=== PATIENT | female | born 1965 | race Caucasian/White ===

== ENCOUNTER 2018-05-15 06:42 | Emergency (ER) | payer BC, OTHER ==
[2018-05-15 07:21] VITALS: BP 158/90; PULSE 87; TEMP 98.2; BMI 27.4
--- NOTE | 2018-05-15 07:48 | PDOC ---
History of Present Illness - General Chief Complaint: Eye Problem Stated Complaint: LEFT EYE PROBLEM Time Seen by Provider: 05/15/18 07:39 History Source: Patient Exam Limitations: No Limitations - History of Present Illness Initial Comments: 05/15/18 07:43 53-year-old female presents to ED with redness to the left eye upon awakening. Patient states no discomfort visual changes or itching/strain. The patient has no other complaints at this time. Patient denies any injury to the eye or excessive coughing but states lifts heavy items at work daily Timing/Duration: 1-3 hours Severity: mild Associated Symptoms: reports: denies symptoms Past History - Travel Traveled outside of the country in the last 30 days: No - Past Medical History Allergies/Adverse Reactions: Allergies Allergy/AdvReac Type Severity Reaction Status Date / Time Penicillins Allergy Verified 01/11/16 16:01 Home Medications: Ambulatory Orders Aspirin [ASA -] 325 mg PO DAILY 01/11/16 Clindamycin [Cleocin -] 300 mg PO TID #21 capsule 01/11/16 COPD: No Dialysis: No Hypercholesterolemia: No - Immunization History Immunization Up to Date: No - Suicide/Smoking/Psychosocial Hx Smoking History: Unknown if ever smoked Have you smoked in the past 12 months: No Number of Cigarettes Smoked Daily: 20 Information on smoking cessation initiated: No 'Breaking Loose' booklet given: 01/11/16 Hx Alcohol Use: No Drug/Substance Use Hx: No Substance Use Type: None Patient Lives Alone: No Lives with/in: spouse/SO Review of Systems - Review of Systems Able to Perform ROS?: Yes Constitutional: No: Symptoms Reported HEENTM: Yes: Other (red left eye). No: Eye Pain, Blurred Vision, Recent change in vision Respiratory: No: Symptoms reported Cardiac (ROS): No: Lightheadedness ABD/GI: No: Nausea Integumentary: No: Symptoms Reported Neurological: No: Symptoms reported Hematologic/Lymphatic: No: Symptoms Reported *Physical Exam - Vital Signs Last Vital Signs Temp Pulse Resp BP Pulse Ox 98.2 F 87 16 158/90 100 05/15/18 07:17 05/15/18 07:17 05/15/18 07:17 05/15/18 07:17 05/15/18 07:17 - Physical Exam General Appearance: Yes: Nourished, Appropriately Dressed. No: Apparent Distress HEENT: positive: EOMI, KOKI (noted lateral subconjunctival hemorrhage to left eye) Neck: positive: Supple Extremity: positive: Normal Inspection Integumentary: positive: Normal Color, Warm, Moist Neurologic: positive: Motor Strength 5/5 (ambulatory) Moderate Sedation - Procedure Monitoring Vital Signs: Procedure Monitoring Vital Signs Temperature 98.2 F 05/15/18 07:17 Pulse Rate 87 05/15/18 07:17 Respiratory Rate 16 05/15/18 07:17 Blood Pressure 158/90 05/15/18 07:17 O2 Sat by Pulse Oximetry (%) 100 05/15/18 07:17 Medical Decision Making - Medical Decision Making 05/15/18 07:49 Chief complaint: Left eye redness since awakening this morning. No discomfort Exam: Patient with lateral subconjunctival hemorrhage of the left eye Plan: Supportive care instructions including artificial eyedrops which she may purchase over-the counter *DC/Admit/Observation/Transfer Diagnosis at time of Disposition: Subconjunctival hemorrhage of left eye - Discharge Dispostion Disposition: HOME Condition at time of disposition: Good - Referrals - Patient Instructions Printed Discharge Instructions: DI for Subconjunctival Hemorrhage Additional Instructions: Please avoid rubbing the eye. May purchase [id number] artificial eyedrops if the eye starts to feel "irritated" Otherwise read over in close information on your diagnosis - Post Discharge Activity
== END 2018-05-15 08:00 | disposition home or self-care (01) ==
LOC: JER 06:42
DX: H11.32 Conjunctival hemorrhage, left eye (principal)
CPT/HCPCS: 99281-25

== ENCOUNTER 2018-07-03 02:26 | Emergency (ER) | payer OTHER ==
[2018-07-03 03:03] VITALS: BP 149/88; PULSE 93; TEMP 97.7; BMI 31.6
--- NOTE | 2018-07-03 03:15 | PDOC ---
History of Present Illness - General Stated Complaint: NOSE BLEED,HYPERTENSION Time Seen by Provider: 07/03/18 03:11 History Source: Patient Exam Limitations: No Limitations - History of Present Illness Initial Comments: 07/03/18 03:11 53 year old female with PMH HTN (diagnosed x3 weeks ago, no meds) presented to ED for nose bleed since 0140 today. Pt stated she woke up feeling something in her throat, and saw her nose was bleeding. Pt denied other complaints. Pt stated she takes multiple ASA (2-3 pills) a day, because her "friend told me it would prevent heart attacks". Allergies: PCN Past History - Past Medical History Allergies/Adverse Reactions: Allergies Allergy/AdvReac Type Severity Reaction Status Date / Time Penicillins Allergy Verified 07/03/18 03:03 Home Medications: Ambulatory Orders Aspirin [ASA -] 325 mg PO DAILY 01/11/16 COPD: No Dialysis: No Hypercholesterolemia: No - Immunization History Immunization Up to Date: No - Suicide/Smoking/Psychosocial Hx Smoking History: Never smoked Have you smoked in the past 12 months: No Number of Cigarettes Smoked Daily: 20 Information on smoking cessation initiated: No 'Breaking Loose' booklet given: 01/11/16 Hx Alcohol Use: Yes (Social) Drug/Substance Use Hx: No Substance Use Type: None Review of Systems - Review of Systems Able to Perform ROS?: Yes Comments:: 07/03/18 03:12 General: denied fever, chills, generalized weakness. HEENT: admitted to epistaxis. denied sore throat, rhinorrhea, ear pain. Heart: denied chest pain, palpitations, syncope, diaphoresis. Respiratory: denied shortness of breath, cough, sputum production, hemoptysis. Abdomen: denied abdominal pain, nausea, vomiting, diarrhea, constipation, blood in stool. : denied dysuria, increased urinary frequency, hematuria, urinary incontinence , flank pain. Back: denied back pain. Musculoskeletal: denied joint pain, muscle pain, joint swelling. Neurological: denied headache, dizziness, numbness, tingling, weakness. Skin: denied rash, laceration, abrasion. *Physical Exam - Vital Signs Last Vital Signs Temp Pulse Resp BP Pulse Ox 97.7 F 93 H 18 149/88 98 07/03/18 02:26 07/03/18 02:26 07/03/18 02:26 07/03/18 02:26 07/03/18 02:26 - Physical Exam Comments: 07/03/18 03:13 Constitutional: Well-nourished, Well-developed, appearing stated age. HEENT: head is normocephalic, atraumatic. EOMI. PERRLA. blood oozing from both nares. no septal hematoma bilaterally. Neck: supple. Full ROM. Heart: regular rhythm. no murmurs, rubs or gallops. Lungs: clear to auscultation bilaterally. no crackles, rhonchi or wheezing. no stridor. Abdomen: soft, nontender. normal bowel sounds. no rebound, guarding, masses. Extremities: peripheral pulses intact. no lower extremity edema. Neurological: CN 2-12 grossly intact. moves all four extremities. Psych: awake, alert, oriented x3. follows commands. answers questions appropriately. Moderate Sedation - Procedure Monitoring Vital Signs: Procedure Monitoring Vital Signs Temperature 97.7 F 07/03/18 02:26 Pulse Rate 93 H 07/03/18 02:26 Respiratory Rate 18 07/03/18 02:26 Blood Pressure 149/88 07/03/18 02:26 O2 Sat by Pulse Oximetry (%) 98 07/03/18 02:26 ED Treatment Course - LABORATORY CBC & Chemistry Diagram: 07/03/18 03:15 07/03/18 03:15 Medical Decision Making - Medical Decision Making 07/03/18 03:13 53 year old female with above PMH taking inappropriate ASA dosing presented to ED for nose bleed. Pt counseled extensively on the dangers of taking ASA inappropriately. Initial Vital Signs Temp Pulse Resp BP Pulse Ox 97.7 F 93 H 18 149/88 98 07/03/18 02:26 07/03/18 02:26 07/03/18 02:26 07/03/18 02:26 07/03/18 02:26 Afebrile. No tachycardia. No tachypnea. Mild hypertension. No hypoxia on room air. Labs ordered: CBC, BMP, coags, salicyclate level Imaging ordered: none Medications ordered: none Pt informed to pinch nose, will apply rhinorocket if bleeding does not subside. EKG performed at 0251: rate 89, regular rhythm, normal axis, normal intervals, nonspecific ST changes. 07/03/18 03:52 CBC WBC 8.9 K/mm3 (4.0-10.0) 07/03/18 03:15 RBC 4.26 M/mm3 (3.60-5.2) 07/03/18 03:15 Hgb 14.3 GM/dL (10.7-15.3) 07/03/18 03:15 Hct 41.0 % (32.4-45.2) 07/03/18 03:15 MCV 96.3 fl (80-96) H 07/03/18 03:15 MCH 33.5 pg (25.7-33.7) 07/03/18 03:15 MCHC 34.8 g/dl (32.0-36.0) 07/03/18 03:15 RDW 13.8 % (11.6-15.6) 07/03/18 03:15 Plt Count 189 K/MM3 (134-434) 07/03/18 03:15 MPV 9.4 fl (7.5-11.1) 07/03/18 03:15 No leukocytosis. No anemia. 07/03/18 03:56 CMP Sodium 140 mmol/L (136-145) 07/03/18 03:15 Potassium 4.1 mmol/L (3.5-5.1) 07/03/18 03:15 Chloride 107 mmol/L (98-107) 07/03/18 03:15 Carbon Dioxide 24 mmol/L (21-32) 07/03/18 03:15 Anion Gap 9 MMOL/L (8-16) 07/03/18 03:15 BUN 17 mg/dL (7-18) 07/03/18 03:15 Creatinine 0.8 mg/dL (0.55-1.3) 07/03/18 03:15 Creat Clearance w eGFR > 60 (>60) 07/03/18 03:15 Random Glucose 109 mg/dL (74-106) H 07/03/18 03:15 Calcium 8.0 mg/dL (8.5-10.1) L 07/03/18 03:15 No KARINA. Mild hypocalcemia. No other electrolyte abnormalities. Salicyclate level 4.3 07/03/18 04:06 Pt reassessed, no active bleeding. Pt instructed to continue compression on nasal bridge. 07/03/18 04:21 No active bleeding. Pt informed to stop taking ASA. Pt informed to follow up with PCP. *DC/Admit/Observation/Transfer Diagnosis at time of Disposition: Epistaxis - Discharge Dispostion Condition at time of disposition: Improved Decision to Admit order: No - Referrals Referrals: Hawk Stephens MD [Primary Care Provider] - - Patient Instructions Printed Discharge Instructions: DI for Nosebleed Additional Instructions: You were seen today for nose bleeding. Your lab work was normal. STOP taking aspirin unless you are prescribed it by a doctor. Do not take more than you are prescribed. DO NOT start taking medications based on your friend's advise, always consult your primary care doctor before starting any medications. Take Tylenol over the counter for pain as needed, take as advised on label. If your nose begins to bleed again hold compression. Return to the Emergency Department for bleeding that does not stop with nose compression, chest pain, shortness of breath, lightheadedness like you may pass out, or any other new, worsening or concerning symptoms. - Post Discharge Activity Forms/Work/School Notes: Back to Work
--- NOTE | 2018-07-03 03:20 | PDOC ---
Attending Attestation - Resident Resident Name: Kirsten Sheffield - ED Attending Attestation I have performed the following: I have examined & evaluated the patient, The case was reviewed & discussed with the resident, I agree w/resident's findings & plan - HPI HPI: 07/03/18 03:18 I 53-year-old female with approximately 2 hours of nosebleed right greater than left who denies trauma but does admit to excessive aspirin use. - Physicial Exam PE: 07/03/18 03:18 Agree with resident's exam - Medical Decision Making 07/03/18 03:19 53-year-old female with atraumatic nosebleed Due to excessive aspirin use labs have been ordered Compression to be continued with packing pending resolution Plan for discharge home with ENT follow-up Patient was counseled extensively as to the dangers of excessive aspirin use
[2018-07-03 03:31] LABS: HEMOGLOBIN 14.3 GM/dL (10.7-15.3); MCH 33.5 pg (25.7-33.7); MCHC 34.8 g/dl (32.0-36.0); MEAN CELL VOLUME 96.3 fl (80-96); MEAN PLT VOLUME 9.4 fl (7.5-11.1); PLATELET COUNT 189 K/MM3 (134-434); RBC 4.26 M/mm3 (3.60-5.2); RDW 13.8 % (11.6-15.6); WHITE BLOOD COUNT 8.9 K/mm3 (4.0-10.0)
[2018-07-03 03:46] LABS: INR 0.94 (0.83-1.09); PROTHROMBIN TIME (PATIENT) 11.1 SEC (9.7-13.0)
[2018-07-03 03:49] LABS: ACTIVATED PTT 29.1 SECONDS (25.2-36.5)
[2018-07-03 03:55] LABS: ANION GAP 9 MMOL/L (8-16); BLOOD UREA NITROGEN 17 mg/dL (7-18); CHLORIDE 107 mmol/L (98-107); CO2 24 mmol/L (21-32); CREATININE 0.8 mg/dL (0.55-1.3); GLUCOSE,RANDOM 109 mg/dL (74-106); POTASSIUM 4.1 mmol/L (3.5-5.1); SODIUM 140 mmol/L (136-145)
--- NOTE | 2018-07-03 14:01 | EKG ---
Test Reason : Blood Pressure : / mmHG Vent. Rate : 089 BPM Atrial Rate : 089 BPM P-R Int : 148 ms QRS Dur : 094 ms QT Int : 372 ms P-R-T Axes : 041 050 053 degrees QTc Int : 452 ms NORMAL SINUS RHYTHM NORMAL ECG WHEN COMPARED WITH ECG OF 07-JUL-2003 10:19, NO SIGNIFICANT CHANGE WAS FOUND Confirmed by LIANA BURKETT MD ([id number]) on 07/03/2018 2:01:18 PM Referred By: Confirmed By:LIANA BURKETT MD
== END 2018-07-03 04:35 | disposition home or self-care (01) ==
LOC: JER 02:26
DX: R04.0 Epistaxis (principal); I10 Essential (primary) hypertension; Z79.82 Long term (current) use of aspirin; Z88.0 Allergy status to penicillin
CPT/HCPCS: 36415; 80048; 80307; 85027; 85610; 85730; 93005; 93010; 99282-25

== ENCOUNTER 2018-07-03 21:59 | Emergency (ER) | payer OTHER ==
[2018-07-03 22:10] VITALS: BP 178/97; PULSE 108; TEMP 97.6; BMI 31.6
--- NOTE | 2018-07-03 23:27 | PDOC ---
History of Present Illness - General Chief Complaint: Nasal Bleeding Stated Complaint: NOSE BLEED Time Seen by Provider: 07/03/18 23:17 - History of Present Illness Initial Comments: Latrice Magallanes is a 53yo woman with recently diagnosed HTN who presents with epistaxis that started about 10pm tonight, a little over an hour prior to arrival. She was seen in the ED yesterday also for epistaxis, and the bleeding was stopped by holding pressure. Ms Magallanes reported during her visit last night that she had been taking 650-975mg of aspirin daily since her recent diagnosis of HTN, but she says that she did not take any today after being told to stop. Ms Magallanes reports that today she noticed some dried blood in her nostril at home. She sprayed saline into her nose and attempted to use her fingernail to remove the blood. Shortly afterward, her nose started bleeding again. She tried holding pressure at home without success, and so she presented to the ED again. She states that most of the blood is running down into her throat as she was told yesterday to keep her head back and states that she was also told she should not drink any water. Past History - Past Medical History Allergies/Adverse Reactions: Allergies Allergy/AdvReac Type Severity Reaction Status Date / Time Penicillins Allergy Verified 07/03/18 22:10 Home Medications: Ambulatory Orders Aspirin [ASA -] 325 mg PO DAILY 01/11/16 COPD: No Dialysis: No Hypercholesterolemia: No - Immunization History Immunization Up to Date: No - Suicide/Smoking/Psychosocial Hx Smoking History: Never smoked Have you smoked in the past 12 months: No Number of Cigarettes Smoked Daily: 20 Information on smoking cessation initiated: No 'Breaking Loose' booklet given: 01/11/16 Hx Alcohol Use: No Drug/Substance Use Hx: No Substance Use Type: None Review of Systems - Review of Systems Comments:: General: No fevers, no chills, no weight or appetite change, no malaise HEENT: No changes in vision, no changes in hearing, no congestion, no sore throat CV: No chest pain, no palpitations, no LE edema Pulm: No SOB, no cough, no wheezing GI: No nausea or vomiting, no change in bowel habits, no melena : No frequency, no urgency, no dysuria Musc: No back pain, no joint swelling, no recent injury Skin: No rash, no lesions, no erythema Endo: No excessive thirst, no heat/cold intolerance Heme: No unusual bruising or bleeding, no swollen glands Neuro: No syncope, no numbness/tingling, no focal weakness Vasc: No claudication Psych: No recent change in mood, no SI or HI *Physical Exam - Vital Signs Last Vital Signs Temp Pulse Resp BP Pulse Ox 97.6 F 108 H 16 178/97 H 99 07/03/18 22:08 07/03/18 22:08 07/03/18 22:08 07/03/18 22:08 07/03/18 22:08 - Physical Exam Comments: General: Comfortable, no acute distress HEENT: PERRL, EOMI. Dried blood noted around mouth, active bleeding from nose noted in pharynx. Bleeding from R nare. Cards: RRR Pulm: Comfortable on room air Abd: Soft, nontender, nondistended Ext: ROM intact. Strength 5/5 and equal bilaterally Vasc: Extremities WWP Skin: Normal color, no rashes or lesions Neuro: A&Ox3, CN grossly intact, normal speech, motor/sensory grossly intact and symmetric Psych: Mood appropriate to situation Moderate Sedation - Procedure Monitoring Vital Signs: Procedure Monitoring Vital Signs Temperature 97.6 F 07/03/18 22:08 Pulse Rate 108 H 07/03/18 22:08 Respiratory Rate 16 07/03/18 22:08 Blood Pressure 178/97 H 07/03/18 22:08 O2 Sat by Pulse Oximetry (%) 99 07/03/18 22:08 Medical Decision Making - Medical Decision Making 07/03/18 23:27 Latrice Magallanes is a 53yo woman with recently diagnosed HTN, seen in the ED yesterday with anterior epistaxis, who presents with reccurent epistaxis today after trying to remove the dried blood from her nose. The current episode started approximately 1hr ago. - Holding pressure currently, will reassess. 07/04/18 00:38 - Bleed did not stop after holding pressure for 30 minutes - Anterior nasal packing placed at bedside with immediate resolution of bleeding - Pt monitored for 15 minutes for recurrent bleeding - Ms Magallanes has an appointment scheduled with ENT tomorrow at 3:30pm tomorrow. She understands that she needs to leave the packing in place until removed by ENT, and she also understands that she needs to avoid blowing her nose and should not place anything into her nose. - Plan to d/c home with close follow up. Seen and discussed with Dr Osborne. Mary Carmen Salinas PGY1 *DC/Admit/Observation/Transfer Diagnosis at time of Disposition: Epistaxis - Discharge Dispostion Disposition: HOME Condition at time of disposition: Improved Decision to Admit order: No - Referrals Referrals: Hawk Stephens MD [Primary Care Provider] - John Soni MD [Staff Physician] - - Patient Instructions Printed Discharge Instructions: DI for Nosebleed Additional Instructions: Discharge Instructions: You were seen in the emergency department for a nosebleed. Your bleeding was stopped after placement of nasal packing. The packing needs to be removed within the next 48 hours. Home Care: - You had nasal packing placed to stop your nosebleed. DO NOT TOUCH THE PACKING! - Never stick anything into your nose, especially if you have had a recent nosebleed. - In the future if your nose feels dry you can consider using a saline spray. Use this as often as needed in both nostrils to prevent nasal dryness. - Consider applying vaseline twice per day into your nostril. This will help keep the inside of the nose moist. Use a q-tip to spread the vaseline evenly around the inside of your nostril. - Get a humidifier and place it by your bed. Nosebleeds are often caused by dry air - If your nose starts bleeding, hold firm pressure just under the bony part of your nose. Hold pressure for at least 15 minutes. DO NOT let go to see if your nose is still bleeding. - DO NOT blow your nose following a nosebleed for at least 24-48 hours. This will probably start your nose bleeding again. - DO NOT pick your nose or rub the inside of your nose with a tissue. This could restart the bleeding. - If you need to cough or sneeze, try to sneeze with your mouth wide open to prevent irritation to your nose. Follow Up: - You have been referred to Dr Soni, who is an ENT (ear nose and throat) specialist. You should follow up within the next 1-2 days for removal of your nasal packing and evaluation of your nosebleeds. - Seek medical care if you have nosebleeds that do not stop with the instructions mentioned above, if your nose bleed is severe, if you become lightheaded, if you have fevers to 101F, or if you have any other medical emergency. - Post Discharge Activity
--- NOTE | 2018-07-03 23:58 | PDOC ---
Attending Attestation - HPI HPI: The patient is a 53 year old female, with a significant PMH of HTN (recently diagnosed 3 weeks ago), who presents to the emergency department today for a epistaxis for a few hours. Patient was seen in the ED less than 24 hours ago for the same issue, which was resolved with nasal bridge compression. Patient returns for recurrent epistaxis a few hours ago secondary to patient picking her nose to try to remove dried blood. The patient denies chest pain, shortness of breath, headache and dizziness. Denies fever, chills, nausea, vomit, diarrhea and constipation. Denies dysuria, frequency, urgency and hematuria. Allergies: Penicillins Past surgical history: None reported Social history: No reported PCP: Dr. Hawk Stephens 07/04/18 00:01 - Medical Decision Making Documentation prepared by LI Carreon, acting as manager medical for Juliano Osborne MD. 07/04/18 00:01 <Sharon Cardona - Last Filed: 07/04/18 00:01> - Resident Resident Name: Mary Carmen Salinas - ED Attending Attestation I have performed the following: I have examined & evaluated the patient, The case was reviewed & discussed with the resident, I agree w/resident's findings & plan, Exceptions are as noted - Physicial Exam PE: 07/04/18 00:37 Dried blood around R nare Trickle of BRB coming from R nare on initial exam - Medical Decision Making 07/04/18 00:39 Seen yesterday for epistaxis Recurrence today after pt was trying to clear away dried blood. She states that she sprayed saline and used her finger to pick out the dried blood, initiating a re-bleed. Direct pressure did not resolve bleeding Anterior Rhino rocket placed with good control of bleeding Pt has ENT appointment this afternoon, will follow up as out patient <Juliano Osborne - Last Filed: 07/04/18 00:50>
== END 2018-07-04 00:51 | disposition home or self-care (01) ==
LOC: JER 21:59
PROC: 093K7ZZ Control Bleeding in Nasal Mucosa and Soft Tissue, Via Natural or Artificial Opening (ICD-10-PCS; principal; 2018-07-03)
DX: R04.0 Epistaxis (principal); I10 Essential (primary) hypertension; Z79.82 Long term (current) use of aspirin
CPT/HCPCS: 99281-25

== ENCOUNTER 2020-11-19 13:42 | Emergency (ER) | payer OTHER ==
[2020-11-19 13:48] VITALS: BP 143/89; PULSE 87; TEMP 98; BMI 29.1
[2020-11-19] MEDS ORDERED: ACETAMINOPHEN 500 MG TABLET (FP) PO ONE (14:26)
[2020-11-19] MEDS ORDERED: ACETAMINOPHEN 500 MG TABLET (FP) ONE (14:26)
== END 2020-11-19 15:54 | disposition home or self-care (01) ==
LOC: JERFT 13:42
DX: M71.22 Synovial cyst of popliteal space [Baker], left knee (principal)
CPT/HCPCS: 73562-TC-LT-FY; 93971-TC; 99284-25

== ENCOUNTER 2022-01-28 14:48 | Emergency (ER) | payer OTHER ==
[2022-01-28 14:52] VITALS: BP 152/68; PULSE 91; RESP 18; TEMP 98; BMI 29.9
[2022-01-28] MEDS ORDERED: NAPROXEN 500 MG TABLET PO ONE (15:36)
[2022-01-28] MEDS ORDERED: diazePAM 5 MG TABLET PO ONE (15:36)
[2022-01-28] MEDS ORDERED: NAPROXEN 500 MG TABLET ONE (15:41)
[2022-01-28] MEDS ORDERED: diazePAM 5 MG TABLET ONE (15:42)
== END 2022-01-28 15:43 | disposition home or self-care (01) ==
LOC: JERFT 14:48
DX: M62.830 Muscle spasm of back (principal)
CPT/HCPCS: 99283-25

== ENCOUNTER 2023-09-06 19:40 | Emergency (ER) | payer OTHER ==
[2023-09-06 19:50] VITALS: BP 143/85; PULSE 98; RESP 18; TEMP 97.8
[2023-09-06] MEDS ORDERED: ALBUTEROL SO4 2.5/IPRATROPIUM 0.5 INH SOL 3 ML VIAL.NEB. NEB ONE (21:12)
[2023-09-06] MEDS ORDERED: ALBUTEROL SO4 2.5/IPRATROPIUM 0.5 INH SOL 3 ML VIAL.NEB. NEB SCH (21:15)
== END 2023-09-06 21:18 | disposition left against medical advice (07) ==
LOC: FER 19:40
DX: F41.9 Anxiety disorder, unspecified (principal)
CPT/HCPCS: 99282-25